=== PATIENT | female | born 1940 | race Two or more races ===

== ENCOUNTER 2020-09-20 23:47 | Emergency (ER) | payer OTHER ==
[~2020-09-20] VITALS: Ht 152.4 cm; Wt 65.8 kg
[~2020-09-20 23:47] MED LIST: MONT-8
[2020-09-21 02:03] LABS: Basophils # (auto) 0.1 10 ^3/uL (0-0.2); Basophils % (auto) 1.5 % (0.0-2.0); Eosinophils # (auto) 0.2 10 ^3/uL (0-0.8); Eosinophils % (auto) 2.5 % (0.0-7.0); Hematocrit 38.6 % (36.0-46.0); Hemoglobin 13.2 g/dL (12.2-16.2); Lymphocytes # (auto) 2.8 10 ^3/uL (0.4-5.4); Lymphocytes % (auto) 31.3 % (10.0-50.0); Mean Corpuscular Hemoglobin 30.5 pg (28.0-32.0); Mean Corpuscular Hgb Conc. 34.1 g/dL (32.0-36.0); Mean Corpuscular Volume 89.4 fL (80.0-100.0); Monocytes # (auto) 0.6 10 ^3/uL (0-1.3); Monocytes % (auto) 7.3 % (0.0-12.0); Neutrophils % (auto) 57.4 % (37.0-80.0); Nucleated Red Blood Cells % 0.2 %; Red Blood Cells 4.31 10^6/uL (4.0-5.20); Red Cell Distribution Width 14.7 % (11.8-14.3); White Blood Cell 8.8 10^3/uL (4.4-10.8)
[2020-09-21 02:21] LABS: Albumin 3.3 g/dL (3.4-5.0); Calcium 9.1 mg/dL (8.5-10.1); Potassium 4.3 mmol/L (3.5-5.1)
[2020-09-21 02:24] LABS: Bilirubin, Total 0.3 mg/dL (0.2-1.0); Total Protein 7.3 g/dL (6.4-8.2)
[2020-09-21 08:48] LABS: Urine Bacteria FEW /hpf (None Seen); Urine Blood Negative /uL (Negative); Urine Mucus FEW (None Seen); Urine Specific Gravity 1.011 (1.001-1.035); Urine WBC 42 /hpf (0 - 5)
[2020-09-21 09:37] VITALS: BP 127/58
== END 2020-09-21 09:40 | disposition home or self-care (01) ==
LOC: ER 23:47
DX: I10 Essential (primary) hypertension (principal); M75.32 Calcific tendinitis of left shoulder; N39.0 Urinary tract infection, site not specified; E46 Unspecified protein-calorie malnutrition; J45.909 Unspecified asthma, uncomplicated; Z90.49 Acquired absence of other specified parts of digestive tract
CPT/HCPCS: 36415; 73200; 80053; 81001; 85025; 99285; J7030

== ENCOUNTER → 2021-01-07 | Outpatient (CLI) | payer OTHER ==
[~2021-01-07] MED LIST changes: -MONT-8; +MONT10TA42
[2021-01-07 08:26] LABS: Urine Bacteria FEW /hpf (None Seen); Urine Blood Negative /uL (Negative); Urine Mucus FEW (None Seen); Urine Specific Gravity 1.014 (1.001-1.035); Urine WBC 7 /hpf (0 - 5)
[2021-01-07 08:53] LABS: Calcium 9.7 mg/dL (8.5-10.1); Potassium 4.5 mmol/L (3.5-5.1)
[2021-01-07 08:59] LABS: BUN/Creatinine Ratio 24.3
== END | disposition home or self-care (01) ==
LOC: LAB 08:09
PROVIDERS: ATTEND Student in an Organized Health Care Education/Training Program
DX: I10 Essential (primary) hypertension (principal); E78.5 Hyperlipidemia, unspecified
CPT/HCPCS: 36415; 80048; 80061; 81001

== ENCOUNTER 2021-01-26 20:03 | Emergency (ER) | payer OTHER ==
[~2021-01-26] VITALS: Ht 157.5 cm; Wt 66.7 kg
[2021-01-26 20:43] VITALS: BP 149/72
[2021-01-26 20:43] LABS: Basophils # (auto) 0 10 ^3/uL (0-0.2); Basophils % (auto) 0.2 % (0.0-2.0); Eosinophils # (auto) 0.3 10 ^3/uL (0-0.8); Eosinophils % (auto) 2.9 % (0.0-7.0); Hematocrit 39.2 % (36.0-46.0); Hemoglobin 13.2 g/dL (12.2-16.2); Lymphocytes # (auto) 4.2 10 ^3/uL (0.4-5.4); Lymphocytes % (auto) 43.1 % (10.0-50.0); Mean Corpuscular Hemoglobin 29.1 pg (28.0-32.0); Mean Corpuscular Hgb Conc. 33.8 g/dL (32.0-36.0); Mean Corpuscular Volume 86.1 fL (80.0-100.0); Monocytes # (auto) 0.7 10 ^3/uL (0-1.3); Monocytes % (auto) 7.3 % (0.0-12.0); Neutrophils # (auto) 4.6 10 ^3/uL (1.6-8.6); Neutrophils % (auto) 46.5 % (37.0-80.0); Red Blood Cells 4.55 10^6/uL (4.0-5.20); Red Cell Distribution Width 13.7 % (11.8-14.3); White Blood Cell 9.8 10^3/uL (4.4-10.8)
[2021-01-26 21:01] LABS: Albumin 3.6 g/dL (3.4-5.0); Calcium 9.3 mg/dL (8.5-10.1); Potassium 3.8 mmol/L (3.5-5.1)
[2021-01-26 21:03] LABS: BUN/Creatinine Ratio 27.7; Bilirubin, Total 0.3 mg/dL (0.2-1.0); Total Protein 6.9 g/dL (6.4-8.2)
== END 2021-01-26 21:14 | disposition home or self-care (01) ==
LOC: ER 20:05
DX: I16.0 Hypertensive urgency (principal); R51.9 Headache, unspecified; I10 Essential (primary) hypertension; J45.909 Unspecified asthma, uncomplicated; Z90.49 Acquired absence of other specified parts of digestive tract; Z98.890 Other specified postprocedural states
CPT/HCPCS: 36415; 70450; 80053; 84484; 85025; 93005

== ENCOUNTER 2021-01-28 22:48 | Emergency (ER) | payer OTHER ==
[~2021-01-28] VITALS: Ht 157.5 cm; Wt 66.7 kg
[~2021-01-28 22:48] MED LIST changes: +MONT-8; -MONT10TA42
[2021-01-29] LABS: Basophils # (auto) 0.1 10 ^3/uL (0-0.2); Basophils % (auto) 1.3 % (0.0-2.0); Eosinophils # (auto) 0.4 10 ^3/uL (0-0.8); Eosinophils % (auto) 4.3 % (0.0-7.0); Hematocrit 37.2 % (36.0-46.0); Hemoglobin 12.7 g/dL (12.2-16.2); Lymphocytes # (auto) 3.3 10 ^3/uL (0.4-5.4); Lymphocytes % (auto) 39.8 % (10.0-50.0); Mean Corpuscular Hemoglobin 29.3 pg (28.0-32.0); Mean Corpuscular Hgb Conc. 34.2 g/dL (32.0-36.0); Mean Corpuscular Volume 85.8 fL (80.0-100.0); Monocytes # (auto) 0.7 10 ^3/uL (0-1.3); Monocytes % (auto) 7.9 % (0.0-12.0); Neutrophils # (auto) 3.9 10 ^3/uL (1.6-8.6); Neutrophils % (auto) 46.7 % (37.0-80.0); Nucleated Red Blood Cells % 0.1 %; Red Blood Cells 4.33 10^6/uL (4.0-5.20); Red Cell Distribution Width 13.4 % (11.8-14.3); White Blood Cell 8.4 10^3/uL (4.4-10.8)
[2021-01-29 00:17] LABS: Alanine Aminotransferase 16 U/L (13-56); Albumin 3.6 g/dL (3.4-5.0); Anion Gap 5 (5-15); Aspartate Aminotransferase 10 U/L (15-37); BUN/Creatinine Ratio 19.1; Blood Urea Nitrogen 17 mg/dL (7-18); Calcium 9.1 mg/dL (8.5-10.1); Carbon Dioxide 26 mmol/L (21-32); Chloride 108 mmol/L (98-107); GFR African American 79 mL/min; GFR Non-African American 65 mL/min; Glucose 111 mg/dL (74-106); Potassium 4.2 mmol/L (3.5-5.1); Sodium 139 mmol/L (136-145)
[2021-01-29 00:21] LABS: Alkaline Phosphatase 97 U/L (45-117); Bilirubin, Total 0.3 mg/dL (0.2-1.0); Total Protein 6.7 g/dL (6.4-8.2)
[2021-01-29 03:13] LABS: Urine Bacteria FEW /hpf (None Seen); Urine Blood Negative /uL (Negative); Urine Specific Gravity 1.004 (1.001-1.035); Urine WBC 5 /hpf (0 - 5)
[2021-01-29 06:00] VITALS: BP 139/71
== END 2021-01-29 06:15 | disposition home or self-care (01) ==
LOC: ER 23:12
DX: I10 Essential (primary) hypertension (principal); R51.9 Headache, unspecified; M19.90 Unspecified osteoarthritis, unspecified site; Z79.899 Other long term (current) drug therapy
CPT/HCPCS: 36415; 70450; 80053; 81001; 83880; 84484; 85025; 93005

== ENCOUNTER → 2021-02-26 | Outpatient (CLI) | payer OTHER ==
[~2021-02-26] MED LIST changes: -MONT-8; +MONT10TA42
[2021-02-26 14:24] LABS: Basophils # (auto) 0.1 10 ^3/uL (0-0.2); Basophils % (auto) 0.9 % (0.0-2.0); Eosinophils # (auto) 0.2 10 ^3/uL (0-0.8); Eosinophils % (auto) 1.8 % (0.0-7.0); Hematocrit 37.5 % (36.0-46.0); Hemoglobin 12.7 g/dL (12.2-16.2); Lymphocytes # (auto) 4.2 10 ^3/uL (0.4-5.4); Lymphocytes % (auto) 32.4 % (10.0-50.0); Mean Corpuscular Hemoglobin 29.4 pg (28.0-32.0); Mean Corpuscular Hgb Conc. 33.9 g/dL (32.0-36.0); Mean Corpuscular Volume 86.8 fL (80.0-100.0); Monocytes # (auto) 0.8 10 ^3/uL (0-1.3); Monocytes % (auto) 6.4 % (0.0-12.0); Neutrophils # (auto) 7.5 10 ^3/uL (1.6-8.6); Neutrophils % (auto) 58.5 % (37.0-80.0); Nucleated Red Blood Cells % 0.1 %; Red Blood Cells 4.32 10^6/uL (4.0-5.20); Red Cell Distribution Width 13.8 % (11.8-14.3); White Blood Cell 12.8 10^3/uL (4.4-10.8)
[2021-02-26 15:06] LABS: Albumin 3.1 g/dL (3.4-5.0); Calcium 8.9 mg/dL (8.5-10.1); Potassium 4.1 mmol/L (3.5-5.1)
[2021-02-26 15:10] LABS: BUN/Creatinine Ratio 21.1; Bilirubin, Total 0.2 mg/dL (0.2-1.0); CRP High Sensitivity 0.12 mg/dL (< 0.3); Total Protein 6.8 g/dL (6.4-8.2)
[2021-02-27 11:30] LABS: Hepatitis B Surface Antigen Negative (Negative)
[2021-02-27 12:18] LABS: Hepatitis B Core Total AB Negative
== END | disposition home or self-care (01) ==
LOC: LAB 14:05
PROVIDERS: ATTEND Internal Medicine Rheumatology
DX: M05.79 Rheumatoid arthritis with rheumatoid factor of multiple sites without organ or systems involvement (principal); R94.5 Abnormal results of liver function studies
CPT/HCPCS: 36415; 80053; 85025; 85652; 86141; 86200; 86704; 87340

== ENCOUNTER → 2021-08-20 | Outpatient (CLI) | payer OTHER ==
[~2021-08-20] MED LIST changes: +MONT-8; -MONT10TA42
[2021-08-20 10:09] LABS: Basophils # (auto) 0 10 ^3/uL (0-0.2); Basophils % (auto) 0.6 % (0.0-2.0); Eosinophils # (auto) 0.1 10 ^3/uL (0-0.8); Eosinophils % (auto) 1.7 % (0.0-7.0); Hematocrit 37.3 % (36.0-46.0); Hemoglobin 12.6 g/dL (12.2-16.2); Lymphocytes # (auto) 2.9 10 ^3/uL (0.4-5.4); Lymphocytes % (auto) 41.8 % (10.0-50.0); Mean Corpuscular Hemoglobin 29.7 pg (28.0-32.0); Mean Corpuscular Hgb Conc. 33.8 g/dL (32.0-36.0); Mean Corpuscular Volume 87.8 fL (80.0-100.0); Monocytes # (auto) 0.4 10 ^3/uL (0-1.3); Monocytes % (auto) 6.2 % (0.0-12.0); Neutrophils # (auto) 3.5 10 ^3/uL (1.6-8.6); Neutrophils % (auto) 49.7 % (37.0-80.0); Nucleated Red Blood Cells % 0.1 %; Red Blood Cells 4.25 10^6/uL (4.0-5.20)
[2021-08-20 10:16] LABS: Potassium 4.3 mmol/L (3.5-5.1)
[2021-08-20 10:28] LABS: Albumin 3.4 g/dL (3.4-5.0); BUN/Creatinine Ratio 22.6; Bilirubin, Total 0.5 mg/dL (0.2-1.0); Total Protein 6.7 g/dL (6.4-8.2)
[2021-08-20 11:16] LABS: Urine Bacteria NONE SEEN /hpf (None Seen); Urine Blood Negative /uL (Negative); Urine Specific Gravity 1.014 (1.001-1.035); Urine WBC 14 /hpf (0 - 5)
== END | disposition home or self-care (01) ==
LOC: LAB 07:58
PROVIDERS: ATTEND Student in an Organized Health Care Education/Training Program
DX: I10 Essential (primary) hypertension (principal)
CPT/HCPCS: 36415; 80053; 80061; 81001; 84443; 85025

== ENCOUNTER → 2022-04-28 | Outpatient (CLI) | payer OTHER ==
[2022-04-28 07:20] LABS: Basophils # (auto) 0.1 10 ^3/uL (0-0.2); Basophils % (auto) 1.2 % (0.0-2.0); Eosinophils # (auto) 0.2 10 ^3/uL (0-0.8); Eosinophils % (auto) 2.6 % (0.0-7.0); Hematocrit 35.6 % (36.0-46.0); Hemoglobin 12.2 g/dL (12.2-16.2); Lymphocytes # (auto) 2.7 10 ^3/uL (0.4-5.4); Lymphocytes % (auto) 39.7 % (10.0-50.0); Mean Corpuscular Hemoglobin 29.5 pg (28.0-32.0); Mean Corpuscular Hgb Conc. 34.2 g/dL (32.0-36.0); Mean Corpuscular Volume 86.4 fL (80.0-100.0); Monocytes # (auto) 0.5 10 ^3/uL (0-1.3); Monocytes % (auto) 6.8 % (0.0-12.0); Neutrophils # (auto) 3.4 10 ^3/uL (1.6-8.6); Neutrophils % (auto) 49.7 % (37.0-80.0); Red Blood Cells 4.12 10^6/uL (4.0-5.20); Red Cell Distribution Width 13.9 % (11.8-14.3); White Blood Cell 6.9 10^3/uL (4.4-10.8)
[2022-04-28 07:22] LABS: Urine Bacteria FEW /hpf (None Seen); Urine Blood Negative /uL (Negative); Urine Specific Gravity 1.009 (1.001-1.035); Urine WBC 4 /hpf (0 - 5)
[2022-04-28 07:50] LABS: Calcium 9.3 mg/dL (8.5-10.1); Potassium 4.3 mmol/L (3.5-5.1)
[2022-04-28 07:53] LABS: BUN/Creatinine Ratio 29.3
== END | disposition home or self-care (01) ==
LOC: LAB 06:58
PROVIDERS: ATTEND Student in an Organized Health Care Education/Training Program
DX: I10 Essential (primary) hypertension (principal)
CPT/HCPCS: 36415; 80048; 81001; 84436; 84443; 85025; 85652

== ENCOUNTER → 2022-10-08 | Outpatient (CLI) | payer OTHER ==
[2022-10-08 08:12] LABS: Basophils # (auto) 0.1 10 ^3/uL (0-0.2); Basophils % (auto) 1.1 % (0.0-2.0); Eosinophils # (auto) 0.2 10 ^3/uL (0-0.8); Eosinophils % (auto) 2.8 % (0.0-7.0); Hematocrit 38.7 % (36.0-46.0); Hemoglobin 13.4 g/dL (12.2-16.2); Lymphocytes # (auto) 3.4 10 ^3/uL (0.4-5.4); Lymphocytes % (auto) 47.5 % (10.0-50.0); Mean Corpuscular Hemoglobin 29.1 pg (28.0-32.0); Mean Corpuscular Hgb Conc. 34.6 g/dL (32.0-36.0); Mean Corpuscular Volume 84.1 fL (80.0-100.0); Monocytes # (auto) 0.5 10 ^3/uL (0-1.3); Monocytes % (auto) 6.9 % (0.0-12.0); Neutrophils % (auto) 41.7 % (37.0-80.0); Nucleated Red Blood Cells % 0.1 %; Red Cell Distribution Width 13.7 % (11.8-14.3); White Blood Cell 7.1 10^3/uL (4.4-10.8)
[2022-10-08 08:26] LABS: Urine Bacteria NONE SEEN /hpf (None Seen); Urine Blood Negative /uL (Negative); Urine WBC 3 /hpf (0 - 5)
[2022-10-08 09:00] LABS: Albumin 3.3 g/dL (3.4-5.0); Calcium 9.8 mg/dL (8.5-10.1); Potassium 4.6 mmol/L (3.5-5.1)
[2022-10-08 09:05] LABS: Bilirubin, Total 0.4 mg/dL (0.2-1.0)
== END | disposition home or self-care (01) ==
LOC: LAB 07:56
PROVIDERS: ATTEND Student in an Organized Health Care Education/Training Program
DX: I10 Essential (primary) hypertension (principal); E78.5 Hyperlipidemia, unspecified; E55.9 Vitamin D deficiency, unspecified; M05.79 Rheumatoid arthritis with rheumatoid factor of multiple sites without organ or systems involvement
CPT/HCPCS: 36415; 80053; 80061; 81001; 82306; 85025; 85652

== ENCOUNTER 2022-12-09 12:30 | Inpatient (IN) | payer OTHER ==
[~2022-12-09] VITALS: Ht 157.5 cm; Wt 60.2 kg
[2022-12-09 15:10] LABS: Basophils # (auto) 0.1 10 ^3/uL (0-0.2); Eosinophils # (auto) 0.2 10 ^3/uL (0-0.8); Eosinophils % (auto) 2.4 % (0.0-7.0); Hematocrit 37.9 % (36.0-46.0); Hemoglobin 13.4 g/dL (12.2-16.2); Lymphocytes % (auto) 33.4 % (10.0-50.0); Mean Corpuscular Hemoglobin 29.6 pg (28.0-32.0); Mean Corpuscular Hgb Conc. 35.2 g/dL (32.0-36.0); Mean Corpuscular Volume 84.1 fL (80.0-100.0); Monocytes # (auto) 0.6 10 ^3/uL (0-1.3); Neutrophils % (auto) 56.2 % (37.0-80.0); Nucleated Red Blood Cells % 0.1 %; Red Blood Cells 4.51 10^6/uL (4.0-5.20); Red Cell Distribution Width 13.8 % (11.8-14.3); White Blood Cell 8.9 10^3/uL (4.4-10.8)
[2022-12-09 15:26] LABS: Urine Bacteria FEW /hpf (None Seen); Urine Blood Negative /uL (Negative); Urine Mucus FEW (None Seen); Urine Specific Gravity 1.026 (1.001-1.035); Urine WBC 6 /hpf (0 - 5)
[2022-12-09 15:33] LABS: Albumin 4.1 g/dL (3.4-5.0); Potassium 4.5 mmol/L (3.5-5.1)
[2022-12-09 15:36] LABS: BUN/Creatinine Ratio 16.9 (10.0-20.0); Bilirubin, Total 0.6 mg/dL (0.2-1.0); Total Protein 7.2 g/dL (6.4-8.2)
[2022-12-09] MEDS ORDERED: cefTRIAXone 1GM/50ML D5W 50 ML IV ONE (15:45)
[2022-12-09] MEDS ORDERED: MAALOX PLUS or MAALOX 30 ML PO ONE (17:45)
[2022-12-09] MEDS ORDERED: PANTOPRAZOLE 40 MG TAB PO ONE (17:45)
[2022-12-09] MEDS ORDERED: SUCRALFATE 1 GM TAB PO ONE (17:45)
[2022-12-09] MEDS ORDERED: CEPH500C PO ×2 (17:53)
[2022-12-09] MEDS ORDERED: cefTRIAXone SOD 1,000 MG VL IM ONE (18:00)
[2022-12-09] MEDS: LIDOCAINE VISCOUS 2% 15ML UD PO ONE ×2 (18:10→18:11)
[2022-12-10] MEDS ORDERED: ONDANSETRON HCL 4 MG/2 ML VIAL IV PRN (07:00)
[2022-12-10] MEDS ORDERED: ACETAMINOPHEN 325 MG TAB PO PRN (07:00)
[2022-12-10 07:34] LABS: Basophils # (auto) 0.1 10 ^3/uL (0-0.2); Basophils % (auto) 0.8 % (0.0-2.0); Eosinophils # (auto) 0.3 10 ^3/uL (0-0.8); Eosinophils % (auto) 2.9 % (0.0-7.0); Hematocrit 34.4 % (36.0-46.0); Hemoglobin 12.1 g/dL (12.2-16.2); Lymphocytes # (auto) 2.9 10 ^3/uL (0.4-5.4); Lymphocytes % (auto) 33.2 % (10.0-50.0); Mean Corpuscular Hemoglobin 29.4 pg (28.0-32.0); Mean Corpuscular Hgb Conc. 35.3 g/dL (32.0-36.0); Mean Corpuscular Volume 83.2 fL (80.0-100.0); Monocytes # (auto) 0.7 10 ^3/uL (0-1.3); Monocytes % (auto) 7.9 % (0.0-12.0); Neutrophils # (auto) 4.8 10 ^3/uL (1.6-8.6); Neutrophils % (auto) 55.2 % (37.0-80.0); Nucleated Red Blood Cells % 0.1 %; Red Blood Cells 4.13 10^6/uL (4.0-5.20); Red Cell Distribution Width 13.6 % (11.8-14.3); White Blood Cell 8.6 10^3/uL (4.4-10.8)
[2022-12-10 07:47] LABS: Albumin 3.7 g/dL (3.4-5.0); Calcium 9.5 mg/dL (8.5-10.1); Potassium 4.4 mmol/L (3.5-5.1)
[2022-12-10 07:51] LABS: BUN/Creatinine Ratio 19.6 (10.0-20.0); Bilirubin, Total 0.6 mg/dL (0.2-1.0); Total Protein 6.6 g/dL (6.4-8.2)
[2022-12-10] MEDS: PANTOPRAZOLE 40 MG TAB PO SCH (10:45)
[2022-12-10] MEDS: LISINOPRIL 20 MG TAB PO SCH ×2 (10:45→22:03)
[2022-12-10] MEDS: HYDROcodone-ACET 5/325MG TAB PO PRN ×2 (10:52→23:46)
[2022-12-10 13:00] VITALS: BP 135/66
[2022-12-10 14:20] VITALS: BP 135/66
[2022-12-10] MEDS ORDERED: AMLO1TAB22 PO (16:04)
[2022-12-10] MEDS ORDERED: MELO-335 PO (16:04)
[2022-12-10] MEDS ORDERED: CHOL20007 OR (16:05)
[2022-12-10] MEDS ORDERED: LISI30TA8 PO (16:05)
[2022-12-10 16:46] VITALS: BP 128/58
[2022-12-10] MEDS: cefTRIAXone 1GM/50ML D5W 50 ML IV SCH (18:14)
[2022-12-10 22:00] VITALS: BP 130/67
[2022-12-10] MEDS: ATORVASTATIN 20 MG TAB PO SCH (22:02)
[2022-12-11 04:47] VITALS: BP 104/55
[2022-12-11 05:21] LABS: Basophils # (auto) 0.1 10 ^3/uL (0-0.2); Basophils % (auto) 1.1 % (0.0-2.0); Eosinophils # (auto) 0.3 10 ^3/uL (0-0.8); Eosinophils % (auto) 3.4 % (0.0-7.0); Hematocrit 34.3 % (36.0-46.0); Hemoglobin 12.2 g/dL (12.2-16.2); Lymphocytes # (auto) 3.7 10 ^3/uL (0.4-5.4); Lymphocytes % (auto) 43.3 % (10.0-50.0); Mean Corpuscular Hemoglobin 29.8 pg (28.0-32.0); Mean Corpuscular Hgb Conc. 35.6 g/dL (32.0-36.0); Mean Corpuscular Volume 83.8 fL (80.0-100.0); Monocytes # (auto) 0.6 10 ^3/uL (0-1.3); Monocytes % (auto) 6.9 % (0.0-12.0); Neutrophils # (auto) 3.9 10 ^3/uL (1.6-8.6); Neutrophils % (auto) 45.3 % (37.0-80.0); Nucleated Red Blood Cells % 0.1 %; Red Blood Cells 4.09 10^6/uL (4.0-5.20); Red Cell Distribution Width 13.6 % (11.8-14.3); White Blood Cell 8.5 10^3/uL (4.4-10.8)
[2022-12-11 05:38] LABS: BUN/Creatinine Ratio 13.1 (10.0-20.0); Calcium 9.8 mg/dL (8.5-10.1); Potassium 4.2 mmol/L (3.5-5.1)
[2022-12-11 09:00] VITALS: BP 111/58
[2022-12-11] MEDS: LISINOPRIL 20 MG TAB PO SCH ×2 (10:00→22:06)
[2022-12-11] MEDS: PANTOPRAZOLE 40 MG TAB PO SCH (10:31)
[2022-12-11 13:00] VITALS: BP 107/53
[2022-12-11 17:00] VITALS: BP 133/63
[2022-12-11] MEDS: cefTRIAXone 1GM/50ML D5W 50 ML IV SCH (17:24)
[2022-12-11 22:00] VITALS: BP 132/70
[2022-12-11] MEDS: ATORVASTATIN 20 MG TAB PO SCH (22:07)
[2022-12-12 05:00] VITALS: BP 122/68
[2022-12-12 08:00] VITALS: BP 119/62
[2022-12-12] MEDS: PANTOPRAZOLE 40 MG TAB PO SCH (10:26)
[2022-12-12] MEDS: LISINOPRIL 20 MG TAB PO SCH ×2 (10:26→22:00)
[2022-12-12 12:00] VITALS: BP 136/63
[2022-12-12 16:00] VITALS: BP 131/62
[2022-12-12] MEDS: cefTRIAXone 1GM/50ML D5W 50 ML IV SCH (18:15)
[2022-12-12 22:00] VITALS: BP 124/65
[2022-12-12] MEDS: ATORVASTATIN 20 MG TAB PO SCH (22:00)
[2022-12-13] MEDS: HYDROcodone-ACET 5/325MG TAB PO PRN ×2 (00:32→22:58)
[2022-12-13 05:00] VITALS: BP 111/69
[2022-12-13 08:56] VITALS: BP 116/63
[2022-12-13] MEDS: LISINOPRIL 20 MG TAB PO SCH ×2 (09:42→20:57)
[2022-12-13] MEDS: PANTOPRAZOLE 40 MG TAB PO SCH (09:42)
[2022-12-13 13:00] VITALS: BP_SYST 115; BP_SYST 116; BP_DIAS 63; BP_DIAS 65
[2022-12-13 16:39] VITALS: BP 121/70
[2022-12-13] MEDS: cefTRIAXone 1GM/50ML D5W 50 ML IV SCH (18:22)
[2022-12-13] MEDS: ATORVASTATIN 20 MG TAB PO SCH (20:57)
[2022-12-13 22:00] VITALS: BP 131/59
[2022-12-14 05:00] VITALS: BP 114/65
[2022-12-14 08:00] VITALS: BP 113/53
[2022-12-14 09:00] VITALS: BP 113/53
[2022-12-14] MEDS: LISINOPRIL 20 MG TAB PO SCH ×2 (10:15→21:21)
[2022-12-14 13:00] VITALS: BP 92/50
[2022-12-14 17:00] VITALS: BP 126/63
[2022-12-14] MEDS: cefTRIAXone 1GM/50ML D5W 50 ML IV SCH (17:51)
[2022-12-14] MEDS: ATORVASTATIN 20 MG TAB PO SCH (21:21)
[2022-12-14 21:49] VITALS: BP 128/83
[2022-12-14] MEDS: HYDROcodone-ACET 5/325MG TAB PO PRN (23:21)
[2022-12-15 04:48] VITALS: BP 108/54
[2022-12-15] MEDS: HYDROcodone-ACET 5/325MG TAB PO PRN (05:36)
[2022-12-15 08:00] VITALS: BP 104/66
[2022-12-15 09:00] VITALS: BP 104/66
[2022-12-15] MEDS: LISINOPRIL 20 MG TAB PO SCH (10:00)
[2022-12-15 12:31] VITALS: BP 112/63
[2022-12-15 17:00] VITALS: BP 127/71
[2022-12-15] MEDS: cefTRIAXone 1GM/50ML D5W 50 ML IV SCH (19:05)
[2022-12-15 19:38] VITALS: BP 127/71
== END 2022-12-15 20:47 | disposition short-term general hospital (02) | DRG 392 ==
LOC: ER 12:30 → OVERFLOW 12-10 07:01 → EAST 12-10 14:55
PROVIDERS: ADMIT Nurse Practitioner; ATTEND Internal Medicine Geriatric Medicine
DX: R10.13 Epigastric pain (principal); N39.0 Urinary tract infection, site not specified; I10 Essential (primary) hypertension; I25.10 Atherosclerotic heart disease of native coronary artery without angina pectoris; K80.50 Calculus of bile duct without cholangitis or cholecystitis without obstruction; Z20.822 Contact with and (suspected) exposure to COVID-19; E78.5 Hyperlipidemia, unspecified; Z90.49 Acquired absence of other specified parts of digestive tract
CPT/HCPCS: 36415; 74176; 74181; 80048; 80053; 81001; 83690; 85025; 87086; 87426; 93005; 96372; G0378; J0696; J2405

== ENCOUNTER 2022-12-17 15:54 | Inpatient (IN) | payer OTHER ==
[~2022-12-17] VITALS: Ht 157.5 cm; Wt 68.0 kg
[~2022-12-17 15:54] MED LIST changes: +AMLO1TAB22 PO; +CHOL20007 OR; +LISI30TA8 PO; +MELO-335 PO; -MONT-8
[2022-12-17 23:54] VITALS: BP 112/54
[2022-12-18] VITALS (7 sets, daily range): BP systolic 108–129; BP diastolic 51–73
[2022-12-18] MEDS ORDERED: DOCU-94 PO (02:17)
[2022-12-18] MEDS ORDERED: CHOL20007 PO (02:17)
[2022-12-18] MEDS ORDERED: LISI30TA8 PO (02:17)
[2022-12-18] MEDS ORDERED: MELO-335 PO (02:17)
[2022-12-18] MEDS ORDERED: ZOFR4T PO (02:17)
[2022-12-18] MEDS ORDERED: AML5T PO (02:17)
[2022-12-18] MEDS ORDERED: HYDR-4902 PO (02:17)
[2022-12-18] MEDS ORDERED: HYDR-4798 PO (02:48)
[2022-12-18] MEDS ORDERED: SODIUM CHLORIDE 0.9% 1,000 ML IV SCH (05:00)
[2022-12-18] MEDS ORDERED: MORPHINE SULFATE INJ 2 MG/ml SYRG IV PRN ×2 (05:00)
[2022-12-18] MEDS ORDERED: ONDANSETRON HCL 4 MG/2 ML VIAL IV PRN (05:00)
[2022-12-18] MEDS ORDERED: ACETAMINOPHEN 325 MG TAB PO PRN (05:00)
[2022-12-18] MEDS ORDERED: HYDROcodone-ACET 5/325MG TAB PO PRN (05:00)
[2022-12-18] MEDS ORDERED: NITROGLYCERIN 0.4 MG SL TAB SL PRN ×2 (05:00→12:15)
[2022-12-18] MEDS ORDERED: SODIUM CHLORIDE 0.9% 500 ML IV ONE (05:15)
[2022-12-18 05:43] LABS: Basophils # (auto) 0.1 10 ^3/uL (0-0.2); Basophils % (auto) 0.3 % (0.0-2.0); Eosinophils # (auto) 0 10 ^3/uL (0-0.8); Hematocrit 32.8 % (36.0-46.0); Hemoglobin 11.1 g/dL (12.2-16.2); Lymphocytes # (auto) 1.4 10 ^3/uL (0.4-5.4); Mean Corpuscular Hemoglobin 29.6 pg (28.0-32.0); Mean Corpuscular Hgb Conc. 33.8 g/dL (32.0-36.0); Mean Corpuscular Volume 87.5 fL (80.0-100.0); Monocytes # (auto) 1.5 10 ^3/uL (0-1.3); Monocytes % (auto) 6.4 % (0.0-12.0); Neutrophils # (auto) 19.8 10 ^3/uL (1.6-8.6); Neutrophils % (auto) 87.3 % (37.0-80.0); Nucleated Red Blood Cells % 0.1 %; Red Blood Cells 3.75 10^6/uL (4.0-5.20); Red Cell Distribution Width 13.6 % (11.8-14.3); White Blood Cell 22.6 10^3/uL (4.4-10.8)
[2022-12-18 05:44] LABS: Albumin 2.8 g/dL (3.4-5.0); Calcium 9.6 mg/dL (8.5-10.1); Potassium 4.5 mmol/L (3.5-5.1)
[2022-12-18 05:47] LABS: BUN/Creatinine Ratio 19.4 (10.0-20.0); Bilirubin, Total 0.6 mg/dL (0.2-1.0); Total Protein 5.9 g/dL (6.4-8.2)
[2022-12-18] MEDS: FAMOTIDINE (10MG/ML) 2ML VL IV SCH ×2 (10:02→21:33)
[2022-12-18 13:34] LABS: Basophils # (auto) 0 10 ^3/uL (0-0.2); Basophils % (auto) 0.2 % (0.0-2.0); Eosinophils # (auto) 0.1 10 ^3/uL (0-0.8); Eosinophils % (auto) 0.4 % (0.0-7.0); Hematocrit 33.1 % (36.0-46.0); Hemoglobin 10.9 g/dL (12.2-16.2); Lymphocytes # (auto) 1.1 10 ^3/uL (0.4-5.4); Lymphocytes % (auto) 5.3 % (10.0-50.0); Mean Corpuscular Hemoglobin 28.9 pg (28.0-32.0); Mean Corpuscular Hgb Conc. 32.9 g/dL (32.0-36.0); Mean Corpuscular Volume 87.8 fL (80.0-100.0); Monocytes # (auto) 1.2 10 ^3/uL (0-1.3); Monocytes % (auto) 5.5 % (0.0-12.0); Neutrophils % (auto) 88.6 % (37.0-80.0); Red Blood Cells 3.76 10^6/uL (4.0-5.20); Red Cell Distribution Width 14.2 % (11.8-14.3); White Blood Cell 21.4 10^3/uL (4.4-10.8)
[2022-12-18 13:41] LABS: Urine Bacteria FEW /hpf (None Seen); Urine Blood Negative /uL (Negative); Urine Hyaline Cast FEW /lpf (0 - 2); Urine Mucus FEW (None Seen); Urine Specific Gravity 1.037 (1.001-1.035); Urine WBC 3 /hpf (0 - 5)
[2022-12-18 13:50] LABS: Partial Thromboplastin Time 33.7 sec (24.6-33.4)
[2022-12-18 13:56] LABS: Albumin 2.8 g/dL (3.4-5.0); Calcium 9.2 mg/dL (8.5-10.1); Magnesium 2.1 mg/dL (1.6-2.6)
[2022-12-18 13:59] LABS: Bilirubin, Total 0.6 mg/dL (0.2-1.0); Total Protein 5.4 g/dL (6.4-8.2)
[2022-12-18] MEDS ORDERED: FUROSEMIDE 40 MG/4 ML VIAL IV ONE (14:15)
[2022-12-18] MEDS: CEFEPIME 1GM/ 50ML 50 ML IV SCH (15:26)
[2022-12-18] MEDS: HYDROcodone-ACET 5/325MG TAB PO PRN (18:56)
[2022-12-18] MEDS ORDERED: GLYCERIN ADULT RECTAL SUPP PR ONE (21:00)
[2022-12-18] MEDS: DOCUSATE SOD 100 MG CAP PO PRN (21:33)
[2022-12-19] MEDS: CEFEPIME 1GM/ 50ML 50 ML IV SCH ×2 (02:23→15:42)
[2022-12-19] MEDS: HYDROcodone-ACET 5/325MG TAB PO PRN ×3 (04:45→18:36)
[2022-12-19 05:00] VITALS: BP 136/79
[2022-12-19 05:49] LABS: Basophils # (auto) 0.1 10 ^3/uL (0-0.2); Basophils % (auto) 0.5 % (0.0-2.0); Eosinophils # (auto) 0.1 10 ^3/uL (0-0.8); Eosinophils % (auto) 0.3 % (0.0-7.0); Hematocrit 31.6 % (36.0-46.0); Hemoglobin 10.7 g/dL (12.2-16.2); Lymphocytes # (auto) 1.8 10 ^3/uL (0.4-5.4); Lymphocytes % (auto) 9.4 % (10.0-50.0); Mean Corpuscular Hgb Conc. 33.9 g/dL (32.0-36.0); Mean Corpuscular Volume 85.4 fL (80.0-100.0); Monocytes # (auto) 1.2 10 ^3/uL (0-1.3); Monocytes % (auto) 6.6 % (0.0-12.0); Neutrophils # (auto) 15.6 10 ^3/uL (1.6-8.6); Neutrophils % (auto) 83.2 % (37.0-80.0); Red Cell Distribution Width 13.6 % (11.8-14.3); White Blood Cell 18.8 10^3/uL (4.4-10.8)
[2022-12-19 06:00] LABS: Albumin 2.6 g/dL (3.4-5.0); Magnesium 1.8 mg/dL (1.6-2.6); Potassium 3.6 mmol/L (3.5-5.1)
[2022-12-19 06:05] LABS: Bilirubin, Total 0.7 mg/dL (0.2-1.0); Total Protein 5.3 g/dL (6.4-8.2)
[2022-12-19 08:10] VITALS: BP 121/57
[2022-12-19 09:00] VITALS: BP 121/57
[2022-12-19] MEDS: FAMOTIDINE (10MG/ML) 2ML VL IV SCH ×2 (09:55→21:58)
[2022-12-19] MEDS: DOCUSATE SOD 100 MG CAP PO PRN (09:56)
[2022-12-19] MEDS: FUROSEMIDE 40 MG/4 ML VIAL IV SCH (09:56)
[2022-12-19] MEDS ORDERED: AZITHROMYCIN 500MG/ 250ML 250 ML IV ONE (11:00)
[2022-12-19 13:00] VITALS: BP 126/64
[2022-12-19 17:16] VITALS: BP 109/64
[2022-12-19] MEDS: METOCLOPRAMIDE HCL 5MG/ml INJ 2ml VIAL IV SCH (21:58)
[2022-12-19 22:00] VITALS: BP 120/62
[2022-12-20] MEDS: CEFEPIME 1GM/ 50ML 50 ML IV SCH ×2 (02:31→13:48)
[2022-12-20 05:00] VITALS: BP 119/60
[2022-12-20] MEDS: METOCLOPRAMIDE HCL 5MG/ml INJ 2ml VIAL IV SCH ×2 (06:17→14:02)
[2022-12-20 06:27] LABS: Basophils # (auto) 0.1 10 ^3/uL (0-0.2); Basophils % (auto) 0.6 % (0.0-2.0); Eosinophils # (auto) 0.2 10 ^3/uL (0-0.8); Eosinophils % (auto) 1.6 % (0.0-7.0); Hematocrit 29.8 % (36.0-46.0); Hemoglobin 10.3 g/dL (12.2-16.2); Lymphocytes # (auto) 1.3 10 ^3/uL (0.4-5.4); Lymphocytes % (auto) 12.2 % (10.0-50.0); Mean Corpuscular Hgb Conc. 34.4 g/dL (32.0-36.0); Mean Corpuscular Volume 84.3 fL (80.0-100.0); Monocytes % (auto) 9.5 % (0.0-12.0); Neutrophils # (auto) 7.9 10 ^3/uL (1.6-8.6); Neutrophils % (auto) 76.1 % (37.0-80.0); Red Blood Cells 3.54 10^6/uL (4.0-5.20); Red Cell Distribution Width 13.7 % (11.8-14.3); White Blood Cell 10.4 10^3/uL (4.4-10.8)
[2022-12-20 06:41] LABS: Albumin 2.3 g/dL (3.4-5.0); Calcium 9.3 mg/dL (8.5-10.1); Magnesium 2.2 mg/dL (1.6-2.6); Potassium 3.1 mmol/L (3.5-5.1)
[2022-12-20 06:47] LABS: BUN/Creatinine Ratio 24.7 (10.0-20.0); Bilirubin, Total 0.5 mg/dL (0.2-1.0); Total Protein 5.6 g/dL (6.4-8.2)
[2022-12-20] MEDS ORDERED: POLYETHYLENE GLYCOL 17 GM PWDR PO PRN (08:45)
[2022-12-20] MEDS ORDERED: POTASSIUM CHL 20 Meq TABLET PO ONE (08:45)
[2022-12-20 09:00] VITALS: BP 131/74
[2022-12-20] MEDS: FAMOTIDINE (10MG/ML) 2ML VL IV SCH ×2 (09:08→22:14)
[2022-12-20] MEDS: AZITHROMYCIN 500MG/ 250ML 250 ML IV SCH (09:09)
[2022-12-20] MEDS: FUROSEMIDE 40 MG/4 ML VIAL IV SCH (09:12)
[2022-12-20 12:00] VITALS: BP 111/67
[2022-12-20] MEDS: HYDROcodone-ACET 5/325MG TAB PO PRN ×2 (12:05→22:22)
[2022-12-20 16:00] VITALS: BP 105/63
[2022-12-20 22:00] VITALS: BP 115/68
[2022-12-21] MEDS: CEFEPIME 1GM/ 50ML 50 ML IV SCH (02:21)
[2022-12-21 05:00] VITALS: BP_SYST 110; BP_SYST 117; BP_DIAS 57; BP_DIAS 64
[2022-12-21 06:39] LABS: BUN/Creatinine Ratio 30.6 (10.0-20.0); Calcium 9.9 mg/dL (8.5-10.1); Potassium 3.3 mmol/L (3.5-5.1)
[2022-12-21 09:00] VITALS: BP 132/70
[2022-12-21] MEDS: AZITHROMYCIN 500MG/ 250ML 250 ML IV SCH (09:00)
[2022-12-21] MEDS: HYDROcodone-ACET 5/325MG TAB PO PRN (09:01)
[2022-12-21] MEDS: FUROSEMIDE 40 MG/4 ML VIAL IV SCH (09:01)
[2022-12-21] MEDS: FAMOTIDINE (10MG/ML) 2ML VL IV SCH (09:01)
[2022-12-21] MEDS ORDERED: POTASSIUM CHL 20 Meq TABLET PO ONE (09:15)
[2022-12-21] MEDS ORDERED: LEVO500T91 PO (11:38)
[2022-12-21 12:35] VITALS: BP 128/74
[2022-12-21 12:35] LABS: Hepatitis C Antibody Negative (Negative)
== END 2022-12-21 12:58 | disposition home or self-care (01) | DRG 444 ==
LOC: TELE-WESTW 23:31
PROVIDERS: ADMIT Nurse Practitioner Family; ATTEND Internal Medicine Geriatric Medicine
DX: K80.50 Calculus of bile duct without cholangitis or cholecystitis without obstruction (principal); J18.9 Pneumonia, unspecified organism; J96.00 Acute respiratory failure, unspecified whether with hypoxia or hypercapnia; K85.90 Acute pancreatitis without necrosis or infection, unspecified; J90 Pleural effusion, not elsewhere classified; I24.9 Acute ischemic heart disease, unspecified; E78.5 Hyperlipidemia, unspecified; E87.6 Hypokalemia; E87.70 Fluid overload, unspecified; I10 Essential (primary) hypertension; I25.10 Atherosclerotic heart disease of native coronary artery without angina pectoris; M19.90 Unspecified osteoarthritis, unspecified site
CPT/HCPCS: 36415; 71045; 74176; 80048; 80053; 80061; 81001; 83690; 83735; 83880; 84484; 85025; 85610; 85730; 86803; 87040; 87340; 93306; 97163; G0378; J2405; J3490